=== PATIENT | female | born 1955 | race Caucasian/White ===

== ENCOUNTER 2022-05-26 16:30 | Outpatient (CLI) | payer MEDICARE | END 2022-05-26 16:31 | disposition home or self-care (01) | LOC: CTENTCT 16:30 | PROVIDERS: ATTEND Otolaryngology Plastic Surgery within the Head & Neck | DX: J32.9 Chronic sinusitis, unspecified (principal) | CPT/HCPCS: 70486 ==

== ENCOUNTER 2023-10-08 10:56 | Outpatient (CLI) | payer MEDICARE | END 2023-10-08 10:57 | disposition home or self-care (01) | LOC: SCSRAD 10:56 | PROVIDERS: ATTEND Family Medicine | DX: R50.9 Fever, unspecified (principal) | CPT/HCPCS: 36415; 71046; 80053; 80061; 81001; 84443; 85025; 87086 ==